=== PATIENT | female | born 1990 | race Hispanic/Latino ===

== ENCOUNTER 2018-09-01 11:07 | Outpatient (CLI) | payer MEDICAID ==
--- NOTE | 2018-09-01 15:55 | Mammography Report ---
BILATERAL DIGITAL DIAGNOSTIC MAMMOGRAM with CAD and BILATERAL BREAST ULTRASOUND : 09/01/18 11:07:00 CLINICAL: 28-year-old with bilateral breast lumps and pain. COMPARISON:03/18/17 FINDINGS: The breasts are heterogeneously dense, which may obscure small masses. No mass, architectural distortion or suspicious calcifications. Ultrasound of the right breast (including all four quadrants and the retroareolar area) was performed and demonstrated normal fibroglandular and fatty structures. No mass, cyst or shadowing. Ultrasound of the right axilla demonstrated a single lymph node with central fat and benign morphology measuring 1.9 x 0.7 x 1.1 cm. No suspicious lymph nodes. Ultrasound of the left breast (including all four quadrants and the retroareolar area) was performed and demonstrated normal fibroglandular and fatty structures. No mass, cyst or shadowing. A single left axillary lymph node with central fat a benign morphology measures 3.0 x 0.6 x 1.4 cm. No suspicious lymph nodes. IMPRESSION: Negative mammogram and negative bilateral breast ultrasound except for bilateral benign axillary lymph nodes. BI-RADS CATEGORY: 2 - - Benign RECOMMENDATION: Clinical followup and routine mammographic screening based on ACS guidelines. ACR BI-RADS MAMMOGRAPHIC CODES: 0 = Needs additional imaging evaluation; 1 = Negative; 2 = Benign; 3 = Probably benign; 4 = Suspicious; 5 = Malignant; 6 = Known biopsy-proven malignancy COMMENT: 1. Dense breast tissue, i.e., adenosis, fibrocystic changes, etc., may obscure an underlying neoplasm. 2. Approximately 10% of cancers are not detected with mammography. 3. A negative mammography report should not delay biopsy if a clinically suspicious mass is present. COMMENT: Patient follow-up letters are generated by our [employer] application.
== END 2018-09-01 11:08 | disposition home or self-care (01) ==
LOC: SPVWC 11:07
PROVIDERS: ATTEND Internal Medicine Hematology
DX: D36.0 Benign neoplasm of lymph nodes (principal); D64.9 Anemia, unspecified; Z87.891 Personal history of nicotine dependence; Z90.49 Acquired absence of other specified parts of digestive tract
CPT/HCPCS: 77066

== ENCOUNTER 2019-01-08 12:12 | Outpatient (CLI) | payer MEDICAID ==
--- NOTE | 2019-01-08 12:44 | XRay Report ---
CHEST TWO VIEWS: 01/08/19 12:12:00 CLINICAL: Left chest wall discomfort. COMPARISON: None FINDINGS: Normal heart and pulmonary vasculature. The lungs are normally expanded and clear except for a few scattered tiny calcified granulomata.The bones and soft tissues are normal. IMPRESSION: Old granulomatous disease.No acute process.
== END 2019-01-08 12:13 | disposition home or self-care (01) ==
LOC: SPVIMAG 12:12
PROVIDERS: ATTEND Internal Medicine Hematology
DX: L92.9 Granulomatous disorder of the skin and subcutaneous tissue, unspecified (principal); D64.9 Anemia, unspecified; Z90.49 Acquired absence of other specified parts of digestive tract
CPT/HCPCS: 71046